=== PATIENT | male | born 1945 | race Caucasian/White ===

== ENCOUNTER 2017-04-28 15:31 | Outpatient (CLI) | payer MEDICARE, OTHER ==
--- NOTE | 2017-04-28 17:29 | XRAY Report ---
TWO VIEW CHEST: 04/28/2017 COMPARISON STUDY: Chest CT 09/01/2014. INDICATION: Congestion and malaise. TECHNIQUE: Two views. FINDINGS: Clear lungs. No pneumothorax or pleural effusion. Mediastinum unremarkable. IMPRESSION: NO EVIDENCE OF ACUTE THORACIC PROCESS. TD: 04/28/2017 17:28 MTDD
== END 2017-04-28 15:32 | disposition home or self-care (01) ==
LOC: DI 15:31
PROVIDERS: ATTEND Family Medicine
DX: R09.89 Other specified symptoms and signs involving the circulatory and respiratory systems (principal); R53.81 Other malaise
CPT/HCPCS: 71046

== ENCOUNTER 2018-03-21 20:50 | Outpatient (CLI) | payer MEDICARE, OTHER | END 2018-03-21 20:51 | disposition critical access hospital (66) | LOC: EMS 20:50 | PROVIDERS: ATTEND Surgery | DX: R42 Dizziness and giddiness (principal); R19.5 Other fecal abnormalities; R53.1 Weakness | CPT/HCPCS: A0425; A0427 ==

== ENCOUNTER 2018-03-21 21:08 | Emergency (ER) | payer MEDICARE, OTHER ==
[2018-03-21] MEDS ORDERED: SODIUM CHLORIDE 0.9% 1,000 ML IV ONE ×2 (21:25→22:15)
[2018-03-21 21:45] LABS: BASOPHILS % (AUTO) 0.6 %; EOSINOPHILS # (AUTO) 0.1 10^3/uL (0.0-0.7); EOSINOPHILS % (AUTO) 1.3 %; LYMPHOCYTES # (AUTO) 1.4 10^3/uL (1.5-3.5); LYMPHOCYTES % (AUTO) 20.6 %; MEAN CORPUSCULAR HEMOGLOBIN 33.9 pg (27.0-31.0); MEAN CORPUSCULAR HGB CONC 33.9 g/dL (32.0-36.0); MEAN CORPUSCULAR VOLUME 99.8 fL (80.0-94.0); MEAN PLATELET VOLUME 9.8 fL (7.4-11.4); MONOCYTES # (AUTO) 0.4 10^3/uL (0.0-1.0); NEUTROPHILS # (AUTO) 4.9 10^3/uL (1.5-6.6); NEUTROPHILS % (AUTO) 71.5 %; PLT - PLATELET COUNT 194 10^3/uL (130-450); RED BLOOD COUNT 3.54 10^6/uL (4.70-6.10); RED CELL DISTRIBUTION WIDTH 12.3 % (12.0-15.0); WHITE BLOOD COUNT 6.9 x10^3/uL (4.8-10.8)
[2018-03-21 21:50] LABS: INR 1.1 (0.8-1.2); PT - PROTHROMBIN TIME 12.7 secs (9.9-12.6)
[2018-03-21 21:56] LABS: ALBUMIN 3.3 g/dL (3.2-5.5); BILIRUBIN,TOTAL 0.6 mg/dL (0.2-1.0); CALCIUM 8.5 mg/dL (8.5-10.3); CREATININE 0.9 mg/dL (0.6-1.2); TOTAL PROTEIN 6.6 g/dL (6.7-8.2)
--- NOTE | 2018-03-21 21:59 | ED Physician Documentation ---
PD HPI GI BLEED - Stated complaint Stated Complaint: BLACK STOOL - Chief complaint Chief Complaint: Abd Pain - History obtained from History obtained from: Patient - History of Present Illness Timing - onset: Last night Timing - details: Still present Associated symptoms: Black/tarry stool Similar symptoms before: Has not had sx before - Additional information Additional information: The patient is a 72-year-old type II diabetic male who presents with black stool. He first noticed it last night, and it is become more prevalent today, becoming tarry. He reports "dizziness" when standing. He denies abdominal pain, nausea, vomiting, or dysuria. He denies fever, chest pain or shortness of breath. He denies history of similar symptoms in the past. Past surgical history is significant for appendectomy and for umbilical hernia repair. Review of Systems Constitutional: reports: Other ("dizziness" when standing.). denies: Fever Nose: denies: Congestion Throat: denies: Sore throat Cardiac: denies: Chest pain / pressure Respiratory: denies: Dyspnea, Cough GI: reports: Bloody / black stool. denies: Abdominal Pain, Nausea, Vomiting, Diarrhea : denies: Dysuria Skin: denies: Rash Musculoskeletal: denies: Back pain, Extremity pain Neurologic: denies: Focal weakness, Numbness, Headache PD PAST MEDICAL HISTORY - Past Medical History Cardiovascular: Hypertension, High cholesterol Respiratory: None Endocrine/Autoimmune: Type 2 diabetes GI: Hepatitis : None HEENT: Chronic vision loss, Dental implants Psych: None Musculoskeletal: Osteoarthritis, Chronic back pain Derm: Rosacea - Past Surgical History General: Appendectomy, Colonoscopy, Other Ortho: Knee replacement HEENT: Tonsil/Adenoidectomy - Present Medications Home Medications: Ambulatory Orders Medication Instructions Recorded Confirmed Metformin HCl 850 mg PO BID 04/21/13 10/09/14 Multivitamin [Daily Multiple 1 each PO DAILY 10/18/13 10/09/14 Vitamin] - Allergies Allergies/Adverse Reactions: Allergies Allergy/AdvReac Type Severity Reaction Status Date / Time clams Allergy Severe Anaphylaxis Verified 10/09/14 09:54 - Social History Does the pt smoke?: No Smoking Status: Former smoker PD ED PE NORMAL - Vitals Vital signs reviewed: Yes (hypertensive) - General General: Alert and oriented X 3, Well developed/nourished - HEENT HEENT: Atraumatic, Moist mucous membranes - Neck Neck: No adenopathy, No JVD - Cardiac Cardiac: RRR, No murmur - Respiratory Respiratory: No respiratory distress, Clear bilaterally - Abdomen Abdomen: Normal bowel sounds, Soft, Non tender, Other (Rotund abdomen.) - Rectal Rectal: Other (Black, heme positive stool.) - Back Back: No CVA TTP - Derm Derm: No rash - Extremities Extremities: No calf tenderness / cord, Other (trace pedal edema.) - Neuro Neuro: Alert and oriented X 3, No motor deficit, Normal speech PD ED PE EXPANDED - Rectal Rectal: Heme Occult Pos - QC + Results - Vitals Vitals: Vital Signs - 24 hr 03/21/18 03/21/18 21:15 21:19 Temperature 36.5 C Heart Rate 102 H 100 Respiratory 20 20 Rate Blood Pressure 145/103 H 145/103 H O2 Saturation 96 97 Oxygen O2 Source Room air - Labs Labs: Laboratory Tests 03/21/18 21:36 Sodium 135 Potassium 4.9 Chloride 103 Carbon Dioxide 22 Anion Gap 10.0 BUN 50 H Creatinine 0.9 Estimated GFR (MDRD) 83 L Glucose 394 H Calcium 8.5 Total Bilirubin 0.6 AST 23 ALT 20 Alkaline Phosphatase 63 Total Protein 6.6 L Albumin 3.3 Globulin 3.3 Albumin/Globulin Ratio 1.0 Lipase 27
[2018-03-21] MEDS ORDERED: FAMOTIDINE 20 MG/50 ML 50 ML IV ONE (22:15)
[2018-03-21] MEDS ORDERED: metFORMIN 500 MG TABLET PO STA (22:16)
[2018-03-21 23:05] VITALS: BP 134/69
--- NOTE | 2018-03-21 23:33 | ED Physician Documentation ---
PD HPI GI BLEED - Stated complaint Stated Complaint: BLACK STOOL - Chief complaint Chief Complaint: Abd Pain - Additional information Additional information: Please see the previous ED record for the HPI and physical examination. I had inadvertently signed the chart prior to its completion, so had to open a new chart to record the disposition. PD PAST MEDICAL HISTORY - Past Medical History Cardiovascular: Hypertension, High cholesterol Respiratory: None Endocrine/Autoimmune: Type 2 diabetes GI: Hepatitis : None HEENT: Chronic vision loss, Dental implants Psych: None Musculoskeletal: Osteoarthritis, Chronic back pain Derm: Rosacea - Past Surgical History General: Appendectomy, Colonoscopy, Other Ortho: Knee replacement HEENT: Tonsil/Adenoidectomy - Present Medications Home Medications: Ambulatory Orders Medication Instructions Recorded Confirmed Metformin HCl 850 mg PO BID 04/21/13 10/09/14 Multivitamin [Daily Multiple 1 each PO DAILY 10/18/13 10/09/14 Vitamin] Famotidine 20 mg PO DAILY #20 tablet 03/21/18 - Allergies Allergies/Adverse Reactions: Allergies Allergy/AdvReac Type Severity Reaction Status Date / Time clams Allergy Severe Anaphylaxis Verified 10/09/14 09:54 - Social History Does the pt smoke?: No Smoking Status: Former smoker Results - Vitals Vitals: Vital Signs - 24 hr 03/21/18 03/21/18 03/21/18 21:15 21:19 22:58 Temperature 36.5 C Heart Rate 102 H 100 Heart Rate [ 87 Standing] Heart Rate [ 88 Supine] Respiratory 20 20 Rate Blood Pressure 145/103 H 145/103 H Blood Pressure 110/73 [Standing] Blood Pressure 134/69 H [Supine] O2 Saturation 96 97 Oxygen O2 Source Room air - Labs Labs: Laboratory Tests 03/21/18 03/21/18 03/21/18 21:36 21:36 21:36 WBC 6.9 RBC 3.54 L Hgb 12.0 L Hct 35.3 L MCV 99.8 H MCH 33.9 H MCHC 33.9 RDW 12.3 Plt Count 194 MPV 9.8 Neut # (Auto) 4.9 Lymph # (Auto) 1.4 L [place] # (Auto) 0.4 Eos # (Auto) 0.1 Baso # (Auto) 0.0 Absolute Nucleated RBC 0.00 Nucleated RBC % 0.0 PT 12.7 H INR 1.1 APTT 26.6 Sodium 135 Potassium 4.9 Chloride 103 Carbon Dioxide 22 Anion Gap 10.0 BUN 50 H Creatinine 0.9 Estimated GFR (MDRD) 83 L Glucose 394 H Calcium 8.5 Total Bilirubin 0.6 AST 23 ALT 20 Alkaline Phosphatase 63 Total Protein 6.6 L Albumin 3.3 Globulin 3.3 Albumin/Globulin Ratio 1.0 Lipase 27 PD MEDICAL DECISION MAKING - ED course Complexity details: reviewed old records, reviewed results, re-evaluated patient, considered differential, d/w patient ED course: Please see the previous incomplete emergency report for the patient's history and physical examination. I had inadvertently signed the chart before completion, so had to open up a new chart. His presentation is significant for gastrointestinal hemorrhage, the site of which is unclear. His stool is black and heme positive. He has a normal hemoglobin and hematocrit of 12.0 and 35.3, as well as normal platelet count of 194, and a normal INR of 1.1. His abdominal exam is benign. His chemistry panel is significant for an elevated BUN of 50 with a creatinine of 0.9. An elevated BUN is expected in someone with a GI bleed. He does not appear dehydrated. His laboratory analysis is also significant for an elevated blood sugar of 394. He has not taken his evening dose of metformin. He does not normally measure his blood sugars, so does not know what he usually runs. It is uncertain whether the patient's GI hemorrhage is upper GI or lower GI. He is currently hemodynamically stable, and I do not think emergent surgical intervention or hospitalization is clinically indicated. Treatment in the emergency department included administration of normal saline 1 L IV, famotidine 20 mg IV, and metformin 1 g orally. Fingerstick blood sugar came down to 321 prior to discharge. Orthostatic vital signs are consistent with hemodynamic stability, with a blood pressure of 134/69 when supine with a pulse of 88, and standing blood pressure 140/70 with a pulse of 97. I discussed with him the diagnosis, outpatient treatment, the importance of outpatient follow-up and referral to gastroenterology, as well as potentially worrisome signs or symptoms that should prompt reevaluation in the emergency department. Departure - Departure Disposition: 01 Home, Self Care Clinical Impression: GI hemorrhage Qualifiers: GI bleed type/associated pathology: unspecified gastrointestinal hemorrhage type Qualified Code(s): K92.2 - Gastrointestinal hemorrhage, unspecified Diabetes mellitus with hyperglycemia Qualifiers: Diabetes mellitus type: type 2 Diabetes mellitus vermin exterminator insulin use: without vermin exterminator use Qualified Code(s): E11.65 - Type 2 diabetes mellitus with hyperglycemia Condition: Stable Instructions: ED Hematochezia Stable Follow-Up: Danny Jean MD [Provider Admit Priv/Credential] - Prescriptions: Famotidine 20 mg PO DAILY #20 tablet Comments: Avoid aspirin, and minimize coffee and marisa. Take famotidine daily as prescribed. Follow-up with your primary physician this week. Call in the morning to schedule an appointment. Return to the emergency department if you develop increasing gastrointestinal bleeding, progressive lightheadedness, shortness of breath, or otherwise worsening symptoms. Discharge Date/Time: 03/21/18 23:38
== END 2018-03-21 23:38 | disposition home or self-care (01) ==
LOC: EDUNIT# → ED 21:08
DX: K92.1 Melena (principal); E11.65 Type 2 diabetes mellitus with hyperglycemia; Z79.84 Long term (current) use of oral hypoglycemic drugs; I10 Essential (primary) hypertension; Z87.891 Personal history of nicotine dependence
CPT/HCPCS: 36415; 80053; 83690; 85025; 85610; 85730; 96365; 99283; 99284; A9270

== ENCOUNTER 2019-01-15 15:56 | Emergency (ER) | payer MEDICARE, OTHER ==
--- NOTE | 2019-01-15 16:25 | ED Physician Documentation ---
PD HPI Fall - Stated complaint Stated Complaint: HEAD LAC/FALL - Chief complaint Chief Complaint: Trauma Hd/Nk - History obtained from History obtained from: Patient PD PAST MEDICAL HISTORY - Past Medical History Cardiovascular: Hypertension, High cholesterol Respiratory: None Endocrine/Autoimmune: Type 2 diabetes GI: Hepatitis : None HEENT: Chronic vision loss, Dental implants Psych: None Musculoskeletal: Osteoarthritis, Chronic back pain Derm: Rosacea - Past Surgical History General: Appendectomy, Colonoscopy, Other Ortho: Knee replacement HEENT: Tonsil/Adenoidectomy - Present Medications Home Medications: Ambulatory Orders Medication Instructions Recorded Confirmed Metformin HCl 850 mg PO BID 04/21/13 10/09/14 Multivitamin [Daily Multiple 1 each PO DAILY 10/18/13 10/09/14 Vitamin] Famotidine 20 mg PO DAILY #20 tablet 03/21/18 - Allergies Allergies/Adverse Reactions: Allergies Allergy/AdvReac Type Severity Reaction Status Date / Time clams Allergy Severe Anaphylaxis Verified 01/15/19 16:03 - Social History Does the pt smoke?: No Smoking Status: Never smoker Results - Vitals Vitals: Vital Signs - 24 hr 01/15/19 16:01 Temperature 36.9 C Heart Rate 95 Respiratory 20 Rate Blood Pressure 179/95 H O2 Saturation 97 Oxygen O2 Source Room air
--- NOTE | 2019-01-15 16:28 | ED Physician Documentation ---
History of Present Illness - Stated complaint Stated Complaint: HEAD LAC/FALL - Chief complaint Chief Complaint: Trauma Hd/Nk - Additonal information Additional information: This is a 73-year-old male who presents after a fall. Patient states that he was feeling well earlier in the day, and had done multiple chores without issue and he went over to say hi to his neighbor and as he was walking across his driveway he developed lack of coordination in his extremities and felt very dizzy/disequilibrated, and he fell backwards and hit his head. He states that he has passed out before but he does not feel like this was lightheadedness from low blood pressure. He did not lose consciousness. The lack of coordination he thinks only lasted <10 seconds, but he remained on the ground for 5-10 minutes as the neighbors checked on him. Afterwards he was able to get up, and felt fine. He denied any facial droop, speech changes, chest pain. He did note that he has some redness over his right lower leg which has for the last 48 hours been getting worse. He has a history of diabetes. No fever, no shortness of breath. Review of Systems Constitutional: denies: Fever Eyes: denies: Loss of vision Nose: denies: Rhinorrhea / runny nose Cardiac: denies: Chest pain / pressure Respiratory: denies: Dyspnea GI: denies: Abdominal Pain : denies: Dysuria Skin: reports: Rash Musculoskeletal: reports: Neck pain Neurologic: reports: Near syncope PD PAST MEDICAL HISTORY - Past Medical History Cardiovascular: Hypertension, High cholesterol Respiratory: None Endocrine/Autoimmune: Type 2 diabetes GI: Hepatitis : None HEENT: Chronic vision loss, Dental implants Psych: None Musculoskeletal: Osteoarthritis, Chronic back pain Derm: Rosacea - Past Surgical History General: Appendectomy, Colonoscopy, Other Ortho: Knee replacement HEENT: Tonsil/Adenoidectomy - Present Medications Home Medications: Ambulatory Orders Medication Instructions Recorded Confirmed Metformin HCl 850 mg PO BID 04/21/13 10/09/14 Multivitamin [Daily Multiple 1 each PO DAILY 10/18/13 10/09/14 Vitamin] Famotidine 20 mg PO DAILY #20 tablet 03/21/18 Cephalexin [Keflex] 500 mg PO Q6H #28 capsule 01/15/19 - Allergies Allergies/Adverse Reactions: Allergies Allergy/AdvReac Type Severity Reaction Status Date / Time clams Allergy Severe Anaphylaxis Verified 01/15/19 16:03 - Social History Does the pt smoke?: No Smoking Status: Never smoker PD ED PE NORMAL - Vitals Vital signs reviewed: Yes - General General: Alert and oriented X 3, No acute distress - HEENT HEENT: Other (There is a 3 cm x 3 cm abrasion on the posterior occiput, no step- offs or palpable fracture. Remainder of head is atraumatic, there is no moser sign, no lay-orbital ecchymosis.) - Neck Neck: Supple, no meningeal sign, Other (Mild midline tenderness at C6/C7) - Cardiac Cardiac: RRR, No murmur - Respiratory Respiratory: Clear bilaterally - Abdomen Abdomen: Normal bowel sounds, Soft, Non tender, Non distended - Derm Derm: Warm and dry - Extremities Extremities: No deformity, Other (Erythema over the right lower extremity extends anteriorly from the ankle to the knee, there is one small vesicle, anterior griffin which is 0.5 cm in diameter. Otherwise no lesions seen.) - Neuro Neuro: Alert and oriented X 3, screw machine tender 2-12 intact, No motor deficit, No sensory deficit, Normal speech, Other (No dysmetria with [id number] testing and [id number].) - Psych Psych: Normal mood, Normal affect Results - Vitals Vitals: Oxygen O2 Source Room air - EKG (time done) 16:56 Other comments: Other comments (Rate 92, rhythm sinus, no ST segment changes, no abnormal T wave inversions, intervals within normal limits.) - Labs Labs: Laboratory Tests 01/15/19 01/15/19 01/15/19 16:55 16:55 16:55 WBC 8.0 RBC 4.27 L Hgb 14.2 Hct 41.1 L MCV 96.3 H MCH 33.3 H MCHC 34.5 RDW 12.3 Plt Count 179 MPV 11.3 Neut # (Auto) 6.1 Lymph # (Auto) 0.9 L [place] # (Auto) 0.7 Eos # (Auto) 0.2 Baso # (Auto) 0.0 Absolute Nucleated RBC 0.00 Nucleated RBC % 0.0 PT 12.9 H INR 1.1 Sodium 134 L Potassium 4.2 Chloride 99 L Carbon Dioxide 24 Anion Gap 11.0 BUN 15 Creatinine 0.8 Estimated GFR (MDRD) 95 Glucose 444 H Lactic Acid Calcium 8.9 Total Bilirubin 0.8 AST 25 ALT 20 Alkaline Phosphatase 74 Troponin I High Sens C-Reactive Protein 12.4 H B-Natriuretic Peptide Total Protein 7.5 Albumin 3.9 Globulin 3.6 Albumin/Globulin Ratio 1.1 Lipase 38 01/15/19 01/15/19 01/15/19 16:55 16:55 16:55 WBC RBC Hgb Hct MCV MCH MCHC RDW Plt Count MPV Neut # (Auto) Lymph # (Auto) [place] # (Auto) Eos # (Auto) Baso # (Auto) Absolute Nucleated RBC Nucleated RBC % PT INR Sodium Potassium Chloride Carbon Dioxide Anion Gap BUN Creatinine Estimated GFR (MDRD) Glucose Lactic Acid 1.5 Calcium Total Bilirubin AST ALT Alkaline Phosphatase Troponin I High Sens 4.2 C-Reactive Protein B-Natriuretic Peptide 32 Total Protein Albumin Globulin Albumin/Globulin Ratio Lipase - Rads (name of study) CT head WO Radiology: Other (No acute intracranial abnormality) Chest XR Radiology: Other (Normal 2 view chest) CTA head and Neck Radiology: Other (No stenosis, aneurysm, or other vascular abnormality seen) PD MEDICAL DECISION MAKING - ED course Complexity details: considered differential (TIA, vertigo, orthostasis, ACS, dysrhtyhmia, electrolyte disturbance) ED course: On exam patient is hypertensive, well-appearing, no neurologic deficits on my exam. He has a steady, narrow based gait, no ataxia or dysmetria, and a negative dixhallpike. He is asymptomatic and feeling well at this time. Labs are unrevealing other than hyperglycemia consistent with his diabetes, and somewhat elevated CRP. He has a mild scalp abrasion, no wound that requires repair. Regarding his episode of poor coordination, given his description I am somewhat suspicious for potential TIA, CT head and CTA head and neck are unrevealing. EKG and tropoinin do not reveal any signs of ischemia or dysrhtyhmia, and patient has no chest pain or shortness of breath. He has multiple risk factors for TIA, though his history would suggest a posterior circulation TIA, he did not have any weakness, facial droop, or speech changes. I discussed admission with Dr. Muniz, but we do not have echocardiogram available and with his negative CTA he thinks patient would be well served with close outpatient follow up and starting 81mg aspirin daily. Pt is already on a statin. 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 This has not progressed during his visit here, there are no open wounds, and he has a normal WBC, appears reasonable for a trial of oupatient treatment with keflex. Margins were marked and strict return precautions discussed. Pt continues to feel asymptomatic and is up and walking with normal coordination and no symtoms. He agrees with the plan for close outpatient follow up and return to the ED with any recurrent or new symptoms. He was discharged home in the care of family. Departure - Departure Disposition: Home, Self Care Clinical Impression: Near syncope Condition: Good Follow-Up: Danny eJan MD [Primary Care Provider] - Within 3 Days Prescriptions: Cephalexin [Keflex] 500 mg PO Q6H #28 capsule Comments: You were seen today for a brief episode of poor coordination. Your CT of your head in the vessels of your head and neck did not show an obvious cause of your problem, and Your labs look reassuring other than your blood sugar was high. You do appear to have a skin infection of your right lower leg, please take the antibiotic as prescribed and if the redness is spreading a centimeter or more past the edge of the area we marked out, or if you are developing any areas of crusting/scabbing or Blistering, or fever, or any other concerning symptoms, return to the emergency department. Make an appointment with your primary care provider as soon as possible, ideally you should be seen early this next week. We would like you to have an echocardiogram/ultrasound of your heart. If you develop any more episodes of poor coordination, or if you have any other symptoms such as chest pain, shortness of breath, weakness or numbness or tingling, speech changes or facial droop, return to the emergency department immediately. Even though your work-up appeared okay today, it is possible that this was a TIA or mini stroke that resolved, so please take 81 mg of aspirin daily and additionally make sure you are not missing any doses of your statin. Discharge Date/Time: 01/15/19 21:23
[2019-01-15 17:03] LABS: BASOPHILS % (AUTO) 0.3 %; EOSINOPHILS # (AUTO) 0.2 10^3/uL (0.0-0.7); EOSINOPHILS % (AUTO) 1.9 %; HGB - HEMOGLOBIN 14.2 g/dL (14.0-18.0); LYMPHOCYTES # (AUTO) 0.9 10^3/uL (1.5-3.5); LYMPHOCYTES % (AUTO) 11.3 %; MEAN CORPUSCULAR HEMOGLOBIN 33.3 pg (27.0-31.0); MEAN CORPUSCULAR HGB CONC 34.5 g/dL (32.0-36.0); MEAN CORPUSCULAR VOLUME 96.3 fL (80.0-94.0); MEAN PLATELET VOLUME 11.3 fL (7.4-11.4); MONOCYTES # (AUTO) 0.7 10^3/uL (0.0-1.0); MONOCYTES % (AUTO) 9.1 %; NEUTROPHILS # (AUTO) 6.1 10^3/uL (1.5-6.6); NEUTROPHILS % (AUTO) 76.9 %; PLT - PLATELET COUNT 179 10^3/uL (130-450); RED BLOOD COUNT 4.27 10^6/uL (4.70-6.10); RED CELL DISTRIBUTION WIDTH 12.3 % (12.0-15.0)
[2019-01-15 17:09] LABS: INR 1.1 (0.8-1.2); PT - PROTHROMBIN TIME 12.9 secs (9.9-12.6)
[2019-01-15 17:21] LABS: ALBUMIN 3.9 g/dL (3.2-5.5); ALBUMIN/GLOBULIN RATIO 1.1 (1.0-2.2); BILIRUBIN,TOTAL 0.8 mg/dL (0.2-1.0); CALCIUM 8.9 mg/dL (8.5-10.3); CREATININE 0.8 mg/dL (0.6-1.2); CRP - C-REACTIVE PROTEIN 12.4 mg/dL (0-1.0); TOTAL PROTEIN 7.5 g/dL (6.7-8.2)
--- NOTE | 2019-01-15 17:45 | XRAY Report ---
Reason: Near syncope Procedure Date: 01/15/2019 Accession Number: [id number] / [id number] Procedure: XR - Chest 2 View X-Ray CPT Code: 28488 Final Report FULL RESULT: EXAM: CHEST RADIOGRAPHY EXAM DATE: 01/15/2019 05:12 PM. CLINICAL HISTORY: Near syncope. COMPARISON: CHEST 2 VIEW 04/28/2017 3:37 PM. TECHNIQUE: 2 views. FINDINGS: Lungs/Pleura: No focal opacities evident. No pleural effusion. No pneumothorax. Normal volumes. Mediastinum: Heart and mediastinal contours are unremarkable. Other: None. IMPRESSION: Normal 2-view chest radiography. [facility]
--- NOTE | 2019-01-15 17:54 | CT Report ---
Reason: Fall, head impace Procedure Date: 01/15/2019 Accession Number: [id number] / [id number] Procedure: CT - HEAD WO CPT Code: Final Report FULL RESULT: EXAM: CT HEAD EXAM DATE: 01/15/2019 05:24 PM. CLINICAL HISTORY: Fall, head impace. COMPARISON: HEAD W/O 01/15/2019 5:15 PM. TECHNIQUE: Multiaxial CT images were obtained from the foramen magnum to the vertex. Reformats: Sagittal and coronal. IV contrast: None. In accordance with CT protocol optimization, one or more of the following dose reduction techniques were utilized for this exam: automated exposure control, adjustment of mA and/or KV based on patient size, or use of iterative reconstructive technique. FINDINGS: Parenchyma: No intraparenchymal hemorrhage. No evidence of mass, midline shift, or CT findings of infarction. Moat-white differentiation is distinct. Extraaxial Spaces: Normal for age. No subdural or epidural collections identified. Ventricles: Normal in size and position. Sinuses and Orbits: Imaged paranasal sinuses, orbits, and mastoids show no significant abnormality. Bones: No evidence of fracture or calvarial defect. Other: Small left parietal scalp contusion. IMPRESSION: No acute intracranial abnormality. RADIA
--- NOTE | 2019-01-15 17:59 | CT Report ---
Reason: Fall, neck pain Procedure Date: 01/15/2019 Accession Number: [id number] / [id number] Procedure: CT - CERVICAL SPINE WO CPT Code: Final Report FULL RESULT: EXAM: CT CERVICAL SPINE WITHOUT CONTRAST DATE: 01/15/2019 05:24 PM. HISTORY: Fall, neck pain. COMPARISONS: HEAD W/O 01/15/2019 5:15 PM. TECHNIQUE: Thin-section axial images were acquired of the cervical spine without contrast. Post-processing: Coronal and sagittal reformats. Other: None. In accordance with CT protocol optimization, one or more of the following dose reduction techniques were utilized for this exam: automated exposure control, adjustment of mA and/or KV based on patient size, or use of iterative reconstructive technique. FINDINGS: Alignment: No evidence of dislocation. There is partial fusion of the C6 and C7 vertebral bodies. Bones: No fracture or bone lesion. Interspace Levels/Facets: There is moderate multilevel degenerative disease with disk space narrowing, diskovertebral hypertrophy, and facet arthrosis. Spinal canal: No significant abnormalities are seen. Other: No evidence of prevertebral soft tissue swelling or apical pneumothorax. IMPRESSION: No evidence of cervical spine fracture or dislocation. RAD[facility]
[2019-01-15] MEDS ORDERED: IOVERSOL 320 100 ML VIAL IVP ONE ×2 (18:15→18:46)
--- NOTE | 2019-01-15 19:57 | CT Report ---
Reason: Resolved ataxia, assess for stenosis/dissection Procedure Date: 01/15/2019 Accession Number: [id number] / [id number] Procedure: CT - ANGIO HEAD W/WO CPT Code: Final Report FULL RESULT: EXAM: CT ANGIOGRAM HEAD AND NECK. CT SCAN HEAD WITH CONTRAST. EXAM DATE: 01/15/2019 06:45 PM. CLINICAL HISTORY: 73-year-old male. Resolved ataxia, assess for stenosis/dissection. COMPARISON: CERVICAL SPINE W/O 01/15/2019 5:17 PM HEAD W/O 01/15/2019 5:17 PM NECK ANGIO 01/15/2019 6:35 PM. TECHNIQUE: Routine axial helical CTA imaging was performed from the aortic arch through the [place]. Routine axial CT imaging of the head was performed following contrast administration. Reconstructions: Routine multiplanar 3D MIP reconstructions. IV contrast: 80 mL Optiray 320 NASCET Criteria are used for stenosis measurements. In accordance with CT protocol optimization, one or more of the following dose reduction techniques were utilized for this exam: automated exposure control, adjustment of mA and/or KV based on patient size, or use of iterative reconstructive technique. FINDINGS: CT SCAN HEAD: Noncontrast CT head is dictated separately. No abnormal enhancement on the postcontrast CT head. CT ANGIOGRAM EXTRACRANIAL CIRCULATION: The visualized arch is unremarkable. Great vessels are patent and unremarkable. Right Carotid: The common carotid, internal carotid, and external carotid arteries are widely patent. No dissection, significant atherosclerotic plaque, or calcification identified. Left Carotid: The common carotid, internal carotid, and external carotid arteries are widely patent. No dissection, significant atherosclerotic plaque, or calcification identified. Vertebrals: The vertebrobasilar system shows no stenosis, dissection, aneurysm, or significant atherosclerotic disease. CT ANGIOGRAM INTRACRANIAL CIRCULATION: RIGHT: Internal Carotid artery: No evidence of dissection. No evidence of aneurysm along the intracranial ICA. Anterior Cerebral Artery: Patent without significant stenosis, aneurysm, or vascular malformation. Middle Cerebral Artery: Patent without significant stenosis, aneurysm, or vascular malformation. Posterior Cerebral Artery: Patent without significant stenosis, aneurysm, or vascular malformation. Posterior Communicating Artery: Patent without significant stenosis, aneurysm, or vascular malformation. LEFT: Internal Carotid artery: No evidence of dissection. No evidence of aneurysm along the intracranial ICA. Anterior Cerebral Artery: Patent without significant stenosis, aneurysm, or vascular malformation. Middle Cerebral Artery: Patent without significant stenosis, aneurysm, or vascular malformation. Posterior Cerebral Artery: Patent without significant stenosis, aneurysm, or vascular malformation. Posterior Communicating Artery: Patent without significant stenosis, aneurysm, or vascular malformation. CENTRAL: Anterior Communicating Artery: Patent. No aneurysm. The dural venous sinuses are patent. Other: The visualized lung apices are clear. Moderate to severe multilevel degenerative spondylosis. The visualized soft tissues of the neck demonstrate no acute abnormality. IMPRESSION: CT HEAD: 1. Noncontrast CT head dictated separately. 2. No abnormal enhancement on the postcontrast CT head. CTA NECK: 1. No CTA evidence of hemodynamically significant stenosis, large vessel occlusion, acute dissection, aneurysm, or vascular malformation within extracranial arteries. CTA HEAD: 1. No CTA evidence of hemodynamically significant stenosis, large vessel occlusion, acute dissection, aneurysm, or vascular malformation within intracranial arteries. RADIA
[2019-01-15] MEDS ORDERED: cefTRIAXone 1 GM VIAL IVP STA (20:41)
[2019-01-15 21:23] VITALS: BP 150/90
== END 2019-01-15 21:23 | disposition home or self-care (01) ==
LOC: ED 15:56
DX: R55 Syncope and collapse (principal); S00.01XA Abrasion of scalp, initial encounter; M54.2 Cervicalgia; W01.10XA Fall on same level from slipping, tripping and stumbling with subsequent striking against unspecified object, initial encounter; Y93.01 Activity, walking, marching and hiking; Y92.008 Other place in unspecified non-institutional (private) residence as the place of occurrence of the external cause; L53.9 Erythematous condition, unspecified; E11.65 Type 2 diabetes mellitus with hyperglycemia; Z79.84 Long term (current) use of oral hypoglycemic drugs; I10 Essential (primary) hypertension
CPT/HCPCS: 36415; 70496; 70498; 71046; 72125; 80053; 83605; 83690; 83880; 84484; 85025; 85610; 86140; 93005; 96374; 99284; Q9967; 70450

== ENCOUNTER 2019-01-27 12:18 | Outpatient (CLI) | payer MEDICARE, OTHER ==
--- NOTE | 2019-01-27 15:10 | Ultrasound Report ---
Reason: SYNCOPE Procedure Date: 01/27/2019 Accession Number: [id number] / [id number] Procedure: US - Duplex Ext Veins Right CPT Code: Final Report FULL RESULT: EXAM: RIGHT LOWER EXTREMITY VENOUS ULTRASOUND EXAM DATE: 01/27/2019 02:42 PM. CLINICAL HISTORY: SYNCOPE. COMPARISON: None. TECHNIQUE: Real-time sonographic vascular imaging was performed by the primary care pediatrician through the lower extremity utilizing both color-flow and Doppler spectral analysis. Multiple veterans service representative static images were saved for review. FINDINGS: Common Femoral Vein (CFV): Normal. CFV-GSV Junction: Normal. Profunda Femoral Vein (PFV): Normal. Femoral Vein (FV) Prox: Normal. Femoral Vein (FV) Mid: Normal. Femoral Vein (FV) Dist: Normal. Popliteal Vein: Normal. Posterior Tibial Veins: Normal. Peroneal Veins: Normal. Contralateral Side CFV: Normal. Other: None. IMPRESSION: No evidence for deep venous thrombosis. RADIA
== END 2019-01-27 12:19 | disposition home or self-care (01) ==
LOC: DI 12:18
PROVIDERS: ATTEND Physician Assistant
DX: R55 Syncope and collapse (principal); R22.41 Localized swelling, mass and lump, right lower limb; I35.8 Other nonrheumatic aortic valve disorders
CPT/HCPCS: 93306

== ENCOUNTER 2019-12-02 06:19 | Day surgery (SDC) | payer MEDICARE, OTHER ==
[2019-12-02] MEDS ORDERED: LACTATED RINGERS 1,000 ML IV ONE (06:38)
[2019-12-02] MEDS ORDERED: MIDAZOLAM 2 MG/2 ML VIAL IVP ONE (07:25)
[2019-12-02] MEDS ORDERED: fentaNYL 250 MCG/5 ML VIAL IVP ONE (07:25)
[2019-12-02] MEDS ORDERED: LACTATED RINGERS 500 ML IV ONE (08:16)
[2019-12-02 08:40] VITALS: BP 152/83
== END 2019-12-02 06:20 | disposition home or self-care (01) ==
LOC: SDS 06:19
PROVIDERS: ATTEND Surgery
PROC: 0DBL8ZZ Excision of Transverse Colon, Via Natural or Artificial Opening Endoscopic (ICD-10-PCS; 2019-12-02)
PROC: 0DBN8ZX Excision of Sigmoid Colon, Via Natural or Artificial Opening Endoscopic, Diagnostic (ICD-10-PCS; 2019-12-02)
PROC: 0DBM8ZZ Excision of Descending Colon, Via Natural or Artificial Opening Endoscopic (ICD-10-PCS; 2019-12-02)
PROC: 0DBK8ZZ Excision of Ascending Colon, Via Natural or Artificial Opening Endoscopic (ICD-10-PCS; principal; 2019-12-02 07:30)
DX: Z12.11 Encounter for screening for malignant neoplasm of colon (principal); D12.2 Benign neoplasm of ascending colon; D12.3 Benign neoplasm of transverse colon; D12.4 Benign neoplasm of descending colon; D12.5 Benign neoplasm of sigmoid colon; K57.30 Diverticulosis of large intestine without perforation or abscess without bleeding; E11.9 Type 2 diabetes mellitus without complications; Z79.84 Long term (current) use of oral hypoglycemic drugs
CPT/HCPCS: 45380; J3010; J7120

== ENCOUNTER 2023-03-19 07:02 | Day surgery (SDC) | payer MEDICARE, OTHER ==
[2023-03-19] MEDS: LACTATED RINGERS 1,000 ML IV ONE ×2 (07:06→08:35)
[2023-03-19] MEDS ORDERED: PROPOFOL 500 MG/50 ML 500 MG/50 ML VIAL ONE (07:28)
[2023-03-19] MEDS ORDERED: GLYCOPYRROLATE 1 MG/5 ML VIAL ONE (07:31)
[2023-03-19] MEDS ORDERED: MIDAZOLAM 2 MG/2 ML VIAL ONE (07:52)
--- NOTE | 2023-03-19 07:52 | ANESTHESIA ---
Pre-Anesthesia VS, & Labs - Diagnosis screening - Procedure colonoscopy Vital Signs: Temp Pulse Resp BP Pulse Ox O2 Flow Rate 36.5 C 83 14 155/93 H 98 03/19/23 07:07 03/19/23 07:07 03/19/23 07:07 03/19/23 07:07 03/19/23 07:07 Height: 6 ft 4 in Weight (kg): 130.8 kg Body Mass Index: 35.1 BMI Classification: Obese - NPO >8 hours Last Fluid Intake: am prep Home Medications and Allergies Home Medications: Ambulatory Orders Dulaglutide [Trulicity] 1.5 mg IM ONCE 03/18/23 Losartan [Cozaar] 25 mg PO DAILY 03/18/23 Metformin HCl 850 mg PO BID 04/21/13 Multivitamin [Daily Multiple Vitamin] 1 each PO DAILY 10/18/13 Simvastatin 40 mg PO DAILY 12/01/19 Tumeric 12/01/19 Dulaglutide [Trulicity] 1.5 mg IM ONCE 03/18/23 Losartan [Cozaar] 25 mg PO DAILY 03/18/23 Allergies/Adverse Reactions: Allergies Allergy/AdvReac Type Severity Reaction Status Date / Time clams Allergy Severe Anaphylaxis Verified 01/15/19 16:03 Anes History & Medical History - Anesthetic History Anesthesia Complications: reports: No previous complications Family history of Anesthesia Complications: Denies Family history of Malignant Hyperthermia: Denies - Medical History Cardiovascular: reports: Hypertension, High cholesterol Pulmonary: reports: Asthma Gastrointestinal: reports: Colon polyps Urinary: reports: None Musculoskeletal: reports: Osteoarthritis, Chronic back pain Endocrine/Autoimmune: reports: Type 2 diabetes Skin: reports: Other Smoking Status: Never smoker - Surgical History General: reports: Appendectomy, Colonoscopy, Other Eyes Ears Nose Throat (EENT): reports: Tonsil/Adenoidectomy Orthopedic: reports: Knee replacement Exam General: Alert, Oriented x3, Cooperative Dental: Loose/Frag (8) Mouth Openin Fingerbreadth Neck Mobility: Normal Mallampati classification: II Respiratory: Lungs clear, Normal breath sounds, No respiratory distress Cardiovascular: Regular rate Neurological: Normal speech Mental/Cognitive Status: Alert/Oriented X3, Normal for patient Cognitive Status: Within normal limits Plan Anesthesia Type: Total IV Consent for Procedure(s) Verified and Reviewed: Yes Code Status: Attempt Resuscitation ASA classification: 3-Severe systemic disease Is this case an emergency?: No
[2023-03-19 08:58] VITALS: BP 127/84; O2SAT 96
--- NOTE | 2023-03-19 08:59 | ANESTHESIA POST OP EVALUATION ---
Anesthesia Post Eval - Post Anesthesia Eval Vitals: Last Vital Signs Temp 36.4 C L 03/19/23 08:49 Pulse 76 03/19/23 08:49 Resp 16 03/19/23 08:49 BP 127/84 H 03/19/23 08:49 Pulse Ox 96 03/19/23 08:49 O2 Flow Rate CV Function Including HR & BP: Stable Pain Control: Satisfactory Nausea & Vomiting: Negative Mental Status: Baseline Respiratory Status: Airway Patent Hydration Status: Satisfactory Anesthesia Complications: None
[2023-03-19] MEDS ORDERED: SODIUM CHLORIDE 0.9% 10 ML VIAL IVP ONE (09:01)
[2023-03-19] MEDS ORDERED: ePHEDrine 50 MG/ML VIAL IVP ONE (09:01)
[2023-03-19] MEDS ORDERED: LIDOCAINE-PF 2% 10 ML AMP SUBQ ONE (09:03)
== END 2023-03-19 07:03 | disposition home or self-care (01) ==
LOC: SDS 07:02
PROVIDERS: ATTEND Surgery
PROC: 0DBL8ZZ Excision of Transverse Colon, Via Natural or Artificial Opening Endoscopic (ICD-10-PCS; 2023-03-19)
PROC: 0DBK8ZZ Excision of Ascending Colon, Via Natural or Artificial Opening Endoscopic (ICD-10-PCS; principal; 2023-03-19 08:20)
DX: Z12.11 Encounter for screening for malignant neoplasm of colon (principal); D12.3 Benign neoplasm of transverse colon; D12.2 Benign neoplasm of ascending colon; E11.9 Type 2 diabetes mellitus without complications; Z79.85 Long-term (current) use of injectable non-insulin antidiabetic drugs; Z79.84 Long term (current) use of oral hypoglycemic drugs; Z87.891 Personal history of nicotine dependence; E66.9 Obesity, unspecified; Z68.35 Body mass index [BMI] 35.0-35.9, adult
CPT/HCPCS: 45380; J7120

== ENCOUNTER 2023-08-19 15:48 | Outpatient (CLI) | payer MEDICARE, OTHER | END 2023-08-19 15:49 | disposition critical access hospital (66) | LOC: EMS 15:48 | DX: R53.1 Weakness (principal); R51.9 Headache, unspecified | CPT/HCPCS: A0425; A0429 ==

== ENCOUNTER 2023-08-19 16:17 | Emergency (ER) | payer MEDICARE, OTHER ==
--- NOTE | 2023-08-19 17:05 | XRAY Report ---
PROCEDURE: Chest 1V INDICATIONS: Cough and left rib pain TECHNIQUE: One view of the chest was acquired. COMPARISON: 03/17/2018. FINDINGS: Surgical changes and devices: None. Lungs and pleura: No pleural effusions or pneumothorax. Dense focal pneumonia, left lung. Right lung is grossly clear. Mediastinum: Mediastinal contours appear normal. Heart size is normal. Bones and chest wall: No suspicious bony lesions. Overlying soft tissues appear unremarkable. IMPRESSION: Dense focal left-sided pneumonia. Progress films are recommended until clear. Reviewed by: Bunny Erickson MD on 08/19/2023 5:04 PM PDT Approved by: Bunny Erickson MD on 08/19/2023 5:04 PM PDT Station ID: [id number]
[2023-08-19 17:28] LABS: BASOPHILS # (AUTO) 0.1 10^3/uL (0.0-0.1); BASOPHILS % (AUTO) 0.3 %; EOSINOPHILS % (AUTO) 0.2 %; HCT - HEMATOCRIT 34.2 % (42.0-52.0); HGB - HEMOGLOBIN 11.7 g/dL (14.0-18.0); LYMPHOCYTES # (AUTO) 0.9 10^3/uL (1.5-3.5); LYMPHOCYTES % (AUTO) 4.2 %; MEAN CORPUSCULAR HEMOGLOBIN 32.8 pg (27.0-31.0); MEAN CORPUSCULAR HGB CONC 34.2 g/dL (32.0-36.0); MEAN CORPUSCULAR VOLUME 95.8 fL (80.0-94.0); MEAN PLATELET VOLUME 11.7 fL (7.4-11.4); MONOCYTES # (AUTO) 1.7 10^3/uL (0.0-1.0); MONOCYTES % (AUTO) 7.8 %; NEUTROPHILS # (AUTO) 18.5 10^3/uL (1.5-6.6); NEUTROPHILS % (AUTO) 86.2 %; PLT - PLATELET COUNT 214 10^3/uL (130-450); RED BLOOD COUNT 3.57 10^6/uL (4.70-6.10); RED CELL DISTRIBUTION WIDTH 12.9 % (12.0-15.0); WHITE BLOOD COUNT 21.5 x10^3/uL (4.8-10.8)
--- NOTE | 2023-08-19 17:28 | ED Physician Documentation ---
History of Present Illness - Stated complaint Stated Complaint: WEAKNESS - Chief complaint Chief Complaint: General - History obtained from History obtained from: Patient - History of Present Illness Timing: How many days ago (6) Pain level max: 5 Pain level now: 2 - Additonal information Additional information: Patient is a 78-year-old male, history of diabetes who presents to the emergency department stating that he has had diffuse bodyaches and chills for the past 6 days. Rhinorrhea, cough and congestion. He states his left ribs hurt when he coughs. He did not take a COVID test at home. No nausea, vomiting or diarrhea. He does have a wound on the left lower extremity, but it is not bleeding or oo zing. He states he takes Tylenol which helps but when it wears off he feels "bad" again. Review of Systems Ears: denies: Ear pain Nose: reports: Rhinorrhea / runny nose, Congestion Throat: denies: Sore throat Cardiac: denies: Chest pain / pressure, Palpitations Respiratory: reports: Cough. denies: Dyspnea, Wheezing GI: denies: Abdominal Pain, Nausea, Vomiting, Diarrhea, Hematemesis, Bloody / black stool : denies: Dysuria Skin: denies: Rash Musculoskeletal: denies: Neck pain, Back pain Neurologic: reports: Headache (Mild, holocranial, gradual in onset. Waxing and waning). denies: Focal weakness, Numbness PD PAST MEDICAL HISTORY - Past Medical History Past Medical History: Yes Cardiovascular: Hypertension, High cholesterol Respiratory: Asthma Endocrine/Autoimmune: Type 2 diabetes GI: Colon polyps : None HEENT: Chronic sinusitis, Chronic hearing loss Psych: None Musculoskeletal: Osteoarthritis, Chronic back pain Derm: Other - Past Surgical History Past Surgical History: Yes General: Appendectomy, Colonoscopy, Other Ortho: Knee replacement HEENT: Tonsil/Adenoidectomy - Present Medications Home Medications: Ambulatory Orders Medication Instructions Recorded Confirmed Metformin HCl 850 mg PO BID 04/21/13 08/20/23 Multivitamin [Daily Multiple 1 each PO DAILY 10/18/13 08/20/23 Vitamin] Simvastatin 40 mg PO DAILY 12/01/19 08/20/23 Dulaglutide [Trulicity] 1.5 mg IM ONCE 03/18/23 08/20/23 Losartan [Cozaar] 25 mg PO DAILY 03/18/23 08/20/23 Amox/Clav 875/125 [Augmentin] 1 tab PO Q12H #20 tablet 08/19/23 08/20/23 Azithromycin [Zithromax] 250 mg PO DAILY #4 tablet 08/19/23 08/20/23 HYDROcod/ACETAM 5/325 [[place] 5/325] 1 - 2 ea PO Q6H PRN #10 tablet 08/19/23 08/20/23 - Allergies Allergies/Adverse Reactions: Allergies Allergy/AdvReac Type Severity Reaction Status Date / Time clams Allergy Severe Anaphylaxis Verified 08/20/23 17:04 - Social History Does the pt smoke?: No Smoking Status: Never smoker Does the pt drink ETOH?: No Does the pt have substance abuse?: No - Immunizations Immunizations are current?: Yes - POLST Patient has POLST: No PD ED PE NORMAL - Vitals Vital signs reviewed: Yes - General General: Alert and oriented X 3, No acute distress, Well developed/nourished - HEENT HEENT: PERRL, Ears normal, Moist mucous membranes, Pharynx benign - Neck Neck: Supple, no meningeal sign - Cardiac Cardiac: RRR - Respiratory Respiratory: No respiratory distress, Clear bilaterally - Abdomen Abdomen: Soft, Non tender, Non distended - Back Back: No CVA TTP, No spinal TTP - Derm Derm: Warm and dry, No rash - Extremities Extremities: Other (Scabbed over wound to the outer aspect of the left lower leg. No erythema. No drainage. No signs of infection. Otherwise normal exam of the bilateral lower extremities) - Neuro Neuro: Alert and oriented X 3 - Psych Psych: Normal mood, Normal affect Results - Vitals Vitals: Vital Signs - 24 hr 08/19/23 08/19/23 20:00 21:19 Heart Rate 80 78 Respiratory 18 18 Rate Blood Pressure 110/46 L 142/76 H O2 Saturation 97 98 Oxygen O2 Source Room air - Labs Labs: Microbiology 08/19/23 17:18 Blood Culture - Preliminary Blood - Right Arm 08/19/23 17:25 Blood Culture (PCR) - Final Blood - Right Arm 08/19/23 17:23 Blood Culture - Preliminary Blood - Left Arm Laboratory Tests 08/19/23 08/19/23 08/19/23 16:35 16:46 17:18 WBC 21.5 H RBC 3.57 L Hgb 11.7 L Hct 34.2 L MCV 95.8 H MCH 32.8 H MCHC 34.2 RDW 12.9 Plt Count 214 MPV 11.7 H Neut # (Auto) 18.5 H Lymph # (Auto) 0.9 L [place] # (Auto) 1.7 H Eos # (Auto) 0.0 Baso # (Auto) 0.1 Absolute Nucleated RBC 0.00 Band Neuts % (Manual) Not Reportable Abnorm Lymph % (Manual) Not Reportable Nucleated RBC % 0.0 Neutrophils # (Manual) Not Reportable Lymphocytes # (Manual) Not Reportable Monocytes # (Manual) Not Reportable Eosinophils # (Manual) Not Reportable Basophils # (Manual) Not Reportable Differential Comment MANUAL=AUTO DIFF WBC Morphology 1+ SMUDGE CELLS Platelet Estimate NORMAL (130-450,000) Platelet Morphology NORMAL APPEARANCE RBC Morph Micro Appear NORMAL APPEARANCE Sodium 132 L Potassium 3.6 Chloride 97 L Carbon Dioxide 25 Anion Gap 10.0 BUN 17 Creatinine 1.0 Estimated GFR (MDRD) 72 L Glucose 178 H Lactic Acid Calcium 9.0 Total Bilirubin 1.2 H AST 25 ALT 20 Alkaline Phosphatase 107 Total Protein 6.8 Albumin 3.3 Globulin 3.5 Albumin/Globulin Ratio 0.9 L Lipase < 10 L Urine Color Urine Clarity Urine pH Ur Specific [place] Urine Protein Urine Glucose (UA) Urine Ketones Urine Occult Blood Urine Nitrite Urine Bilirubin Urine Urobilinogen Ur Leukocyte Esterase Urine RBC Urine WBC Ur Squamous Epith Cells Urine Bacteria Ur Microscopic Review Urine Culture Comments Nasal Adenovirus (PCR) NOT DETECTED Nasal B. parapertussis DNA (PCR) NOT DETECTED Nasal Coronavir 229E PCR NOT DETECTED Nasal Coronavir HKU1 PCR NOT DETECTED Nasal Coronavir NL63 PCR NOT DETECTED Nasal Coronavir OC43 PCR NOT DETECTED Nasal Enterovir/Rhinovir PCR NOT DETECTED Nasal Influenza B PCR NOT DETECTED Nasal Influenza A PCR NOT DETECTED Nasal Parainfluen 1 PCR NOT DETECTED Nasal Parainfluen 2 PCR NOT DETECTED Nasal Parainfluen 3 PCR NOT DETECTED Nasal Parainfluen 4 PCR NOT DETECTED Nasal RSV (PCR) NOT DETECTED Nasal B.pertussis DNA PCR NOT DETECTED Nasal C.pneumoniae (PCR) NOT DETECTED Master Human Metapneumo PCR NOT DETECTED Nasal M.pneumoniae (PCR) NOT DETECTED Nasal SARS-CoV-2 (PCR) NOT DETECTED 08/19/23 08/19/23 17:18 19:33 WBC RBC Hgb Hct MCV MCH MCHC RDW Plt Count MPV Neut # (Auto) Lymph # (Auto) [place] # (Auto) Eos # (Auto) Baso # (Auto) Absolute Nucleated RBC Band Neuts % (Manual) Abnorm Lymph % (Manual) Nucleated RBC % Neutrophils # (Manual) Lymphocytes # (Manual) Monocytes # (Manual) Eosinophils # (Manual) Basophils # (Manual) Differential Comment WBC Morphology Platelet Estimate Platelet Morphology RBC Morph Micro Appear Sodium Potassium Chloride Carbon Dioxide Anion Gap BUN Creatinine Estimated GFR (MDRD) Glucose Lactic Acid 1.4 Calcium Total Bilirubin AST ALT Alkaline Phosphatase Total Protein Albumin Globulin Albumin/Globulin Ratio Lipase Urine Color DARK YELLOW Urine Clarity CLEAR Urine pH 6.0 Ur Specific [place] 1.025 Urine Protein 100 H Urine Glucose (UA) 100 H Urine Ketones TRACE Urine Occult Blood MODERATE H Urine Nitrite NEGATIVE Urine Bilirubin SMALL H Urine Urobilinogen 4 H Ur Leukocyte Esterase NEGATIVE Urine RBC 0-5 Urine WBC 0-3 Ur Squamous Epith Cells NONE SEEN Urine Bacteria Rare Ur Microscopic Review INDICATED Urine Culture Comments NOT INDICATED Nasal Adenovirus (PCR) Nasal B. parapertussis DNA (PCR) Nasal Coronavir 229E PCR Nasal Coronavir HKU1 PCR Nasal Coronavir NL63 PCR Nasal Coronavir OC43 PCR Nasal Enterovir/Rhinovir PCR Nasal Influenza B PCR Nasal Influenza A PCR Nasal Parainfluen 1 PCR Nasal Parainfluen 2 PCR Nasal Parainfluen 3 PCR Nasal Parainfluen 4 PCR Nasal RSV (PCR) Nasal B.pertussis DNA PCR Nasal C.pneumoniae (PCR) Master Human Metapneumo PCR Nasal M.pneumoniae (PCR) Nasal SARS-CoV-2 (PCR) - Rads (name of study) cxr Relevant Findings:: Final report received, See rad report PD Medical Decision Making - ED course Complexity details: reviewed results, re-evaluated patient, considered differential, d/w patient ED course: 78-year-old male, history of diabetes, has a left lower lobe pneumonia on chest x-ray. Elevated white blood cell count. No hypoxia. No respiratory distress. Normal lactate. Blood cultures were drawn. Given IV Rocephin and IV azithromycin. Feels better. Ambulating without difficulty. We will place on antibiotics for home. He will return if he develops worsening symptoms including increasing shortness of breath or other new or worsening symptoms. Patient counseled regarding signs and symptoms for which I believe and urgent re-evaluation would be necessary. Patient with good understanding of and agreement to plan and is comfortable going home at this time This document was made in part using voice recognition software. While efforts are made to proofread this document, sound alike and grammatical errors may occur. Departure - Departure Disposition: 01 Home, Self Care Clinical Impression: Pneumonia Qualifiers: Pneumonia type: due to unspecified organism Laterality: left Lung location: lower lobe of lung Qualified Code(s): J18.9 - Pneumonia, unspecified organism Condition: Good Instructions: ED Pneumonia Adult Follow-Up: Danny Jean MD [Primary Care Provider] - Within 3 Days Prescriptions: Amox/Clav 875/125 [Augmentin] 1 tab PO Q12H #20 tablet HYDROcod/ACETAM 5/325 [[place] 5/325] 1 - 2 ea PO Q6H PRN #10 tablet PRN Reason: Pain Azithromycin [Zithromax] 250 mg PO DAILY #4 tablet Comments: Your prescriptions were sent to [facility] in [place]. Please follow-up with your doctor for further care. Please take all antibiotics until gone. You will need a repeat chest x-ray in 1 week to ensure that your left lower lobe pneumonia is improving. Please return if you have increasing difficulty breathing or other new or worrisome symptoms. Forms: PCP List Discharge Date/Time: 08/19/23 21:32
[2023-08-19 17:43] LABS: B. PARAPERTUSSIS- RESP PCR PAN NOT DETECTED; B. PERTUSSIS- RESP PCR PANEL NOT DETECTED; C. PNEUMONIAE- RESP PCR PANEL NOT DETECTED; CORONAVIRUS 229E-RESP PCR NOT DETECTED; CORONAVIRUS HKU1-RESP PCR NOT DETECTED; CORONAVIRUS NL63-RESP PCR NOT DETECTED; CORONAVIRUS OC43-RESP PCR NOT DETECTED; HUMAN METAPNEUMOVIRUS NOT DETECTED; INFLUENZA A- RESP PCR PANEL NOT DETECTED; INFLUENZA B - RESP PCR PANEL NOT DETECTED; M. PNEUMONIAE- RESP PCR PANEL NOT DETECTED; PARAINFLUENZA VIRUS 1 NOT DETECTED; PARAINFLUENZA VIRUS 2 NOT DETECTED; PARAINFLUENZA VIRUS 3 NOT DETECTED; PARAINFLUENZA VIRUS 4 NOT DETECTED; RHINOVIRUS/ENTEROVIRUS NOT DETECTED; RSV- RESP PCR PANEL NOT DETECTED; SARS-CoV-2 -RESP PCR PANEL NOT DETECTED
[2023-08-19 17:49] LABS: ALBUMIN 3.3 g/dL (3.2-5.5); ALBUMIN/GLOBULIN RATIO 0.9 (1.0-2.2); ALKALINE PHOSPHATASE 107 IU/L (42-121); ALT ALANINE AMINOTRANSFERASE 20 IU/L (10-60); AST ASPARTATE AMINOTRANSFERASE 25 IU/L (10-42); BILIRUBIN,TOTAL 1.2 mg/dL (0.2-1.0); BUN - BLOOD UREA NITROGEN 17 mg/dL (6-20); CARBON DIOXIDE - CO2 25 mmol/L (21-32); CHLORIDE 97 mmol/L (101-111); GFR - MDRD 72 (>89); GLUCOSE 178 mg/dL (74-104); POTASSIUM 3.6 mmol/L (3.5-4.5); SODIUM 132 mmol/L (135-145); TOTAL PROTEIN 6.8 g/dL (6.4-8.9)
[2023-08-19 17:52] LABS: DIFFERENTIAL COMMENT MANUAL=AUTO DIFF; PLATELET ESTIMATE, MANUAL NORMAL (130-450,000) (NORMAL); PLATELET MORPHOLOGY NORMAL APPEARANCE (NORMAL); RBC MORPHOLOGY (MULTIPLE) NORMAL APPEARANCE (NORMAL); WBC MORPHOLOGY (MULTIPLE) 1+ SMUDGE CELLS (NORMAL)
[2023-08-19 17:53] LABS: LIPASE < 10 U/L (11-82)
[2023-08-19] MEDS: SODIUM CHLORIDE 0.9% 1,000 ML IV STA (18:21)
[2023-08-19] MEDS: KETOROLAC 30 MG/ML VIAL IVP STA (19:12)
[2023-08-19 20:00] LABS: BILIRUBIN,URINE SMALL (NEGATIVE); CLARITY,URINE CLEAR (CLEAR); GLUCOSE, URINE (UA) 100 mg/dL (NEGATIVE); KETONES,URINE (UA) TRACE mg/dL (NEGATIVE); LEUKOCYTE ESTERASE, URINE NEGATIVE (NEGATIVE); NITRITE,URINE NEGATIVE (NEGATIVE); OCCULT BLOOD,URINE MODERATE (NEGATIVE); PROTEIN,URINE 100 mg/dL (NEGATIVE); UROBILINOGEN,URINE 4 E.U./dL (NORMAL)
[2023-08-19 20:07] LABS: BACTERIA,URINE Rare /HPF (None Seen); RBC,URINE 0-5 /HPF (0-5); SQUAMOUS EPITHELIAL CELL,UR NONE SEEN (<= Few); WBC,URINE 0-3 /HPF (0-3)
[2023-08-19] MEDS: cefTRIAXone 1 GM VIAL IVP STA (20:45)
[2023-08-19] MEDS: AZITHROMYCIN 250 MG TABLET PO STA (20:45)
[2023-08-19 21:24] VITALS: BP 142/76; O2SAT 98
[2023-08-19] MEDS: HYDROcod/ACETAM 5/325 MG TABLET PO STA (21:27)
== END 2023-08-19 21:32 | disposition home or self-care (01) ==
LOC: EDUNIT# → ED 16:17
DX: J18.9 Pneumonia, unspecified organism (principal)
CPT/HCPCS: 36415; 71045; 80053; 81001; 83605; 83690; 85025; 87040; 87154; 87181; 87633; 96374; 96375; 99284; A9270; 81003; 87086; 87635

== ENCOUNTER 2023-09-05 14:55 | Outpatient (CLI) | payer MEDICARE, OTHER ==
--- NOTE | 2023-09-05 23:38 | XRAY Report ---
PROCEDURE: Chest 2V INDICATIONS: PNA TECHNIQUE: 2 views of the chest were acquired. COMPARISON: Chest radiograph dated 08/19/[address] chest dated 08/20/2023 FINDINGS: Surgical changes and devices: None. Lungs and pleura: No pneumothorax or pleural effusion. Persistent but decreased density of left ling ular pneumonia. Mediastinum: Mediastinal contours appear normal. Heart size is normal. Bones and chest wall: No suspicious bony lesions. Overlying soft tissues appear unremarkable. IMPRESSION: Persistent but improved appearance of left lingular pneumonia. Reviewed by: Juventino Aranda MD on 09/05/2023 11:37 PM PDT Approved by: Juventino Aarnda MD on 09/05/2023 11:37 PM PDT Station ID: [id number]
== END 2023-09-05 14:56 | disposition home or self-care (01) ==
LOC: DI 14:55
PROVIDERS: ATTEND Student in an Organized Health Care Education/Training Program
DX: J18.9 Pneumonia, unspecified organism (principal)

== ENCOUNTER 2023-10-20 15:10 | Outpatient (CLI) | payer MEDICARE, OTHER | END 2023-10-20 15:11 | disposition home or self-care (01) | LOC: DI 15:10 | PROVIDERS: ATTEND Physician Assistant | DX: I08.0 Rheumatic disorders of both mitral and aortic valves (principal); I77.810 Thoracic aortic ectasia | CPT/HCPCS: 93307 ==